=== PATIENT | male | born 2000 | race Hispanic/Latino ===

== ENCOUNTER 2021-06-26 14:03 | Emergency (ER) | payer MEDICAID, OTHER ==
[~2021-06-26] VITALS: Ht 182.9 cm; Wt 108.9 kg
[2021-06-26 14:05] VITALS: BP 152/75
[2021-06-26] MEDS ORDERED: CYCL10TA16 PO (14:41)
[2021-06-26] MEDS ORDERED: IBUP-2077 PO (14:41)
== END 2021-06-26 15:27 | disposition home or self-care (01) ==
LOC: EDH 14:03
DX: R07.89 Other chest pain (principal); M79.18 Myalgia, other site
CPT/HCPCS: 71045